=== PATIENT | male | born 1950 | race Caucasian/White ===

== ENCOUNTER → 2018-02-11 08:48 | Outpatient (CLI) | payer OTHER, SELFPAY ==
[2018-02-11 10:26] LABS: AST(SGOT) 24 U/L (15-37); Alanine Aminotransfer ALT/SGPT 60 U/L (16-61); Albumin, Serum 3.9 g/dL (3.2-5.0); Alkaline Phosphatase 40 U/L (45-117); Anion Gap 7 (5-15); BUN 17 mg/dL (7-18); BUN/Creat Ratio 15.9 RATIO (10-20); Bilirubin, Direct 0.15 mg/dL (0.00-0.30); Chloride 104 mmol/L (98-107); Cholesterol 152 mg/dL (200); Creatinine, Serum 1.07 mg/dL (0.70-1.30); EST Glomerular Filtration Rate 74 mL/min (>60); Est Glom Filt Rate - Afr Amer 89 mL/min (>60); Globulin 3.8 g/dL (2.2-4.2); Glucose 103 mg/dL (74-106); High Density Lipoprotein 32 mg/dL; Potassium 4.2 mmol/L (3.5-5.1); Protein, Total 7.7 g/dL (6.4-8.2); Sodium Level 139 mmol/L (136-145); Triglycerides 166 mg/dL; Very Low Density Lipoprotein 33 mg/dL (5-40)
== END ==
PROVIDERS: Family Provider Family Medicine; PCP Family Medicine; Visit Provider Family Medicine
DX: E11.9 Type 2 diabetes mellitus without complications (principal); Z79.4 Long term (current) use of insulin
CPT/HCPCS: 36415; 80048; 80061; 80076

== ENCOUNTER → 2018-11-16 08:46 | Outpatient (CLI) | payer OTHER, SELFPAY ==
[2018-11-16 10:38] LABS: Microalbumin:Creatinine Ratio 120.8 mg/g CRE (<30 mg/g CRE)
[2018-11-16 10:39] LABS: Anion Gap 8 (5-15); BUN 17 mg/dL (7-18); BUN/Creat Ratio 19.7 RATIO (10-20); Calcium,Total 8.7 mg/dL (8.5-10.1); Chloride 106 mmol/L (98-107); Cholesterol 151 mg/dL (200); Creatinine, Serum 0.86 mg/dL (0.70-1.30); EST Glomerular Filtration Rate 94 mL/min (>60); Est Glom Filt Rate - Afr Amer 114 mL/min (>60); Glucose 116 mg/dL (74-106); High Density Lipoprotein 40 mg/dL; Potassium 4.4 mmol/L (3.5-5.1); Sodium Level 141 mmol/L (136-145); Triglycerides 165 mg/dL; Very Low Density Lipoprotein 33 mg/dL (5-40)
--- OUTSIDE RECORDS SUMMARY | 2019-01-21 00:01 | XMS RPT_ITS ---
:1950 Author Organization [facility] Care Team Providers Name Role Phone JUDD TERRY Attending Unavailable Eduardo, Ari Attending Unavailable Ari Clark Primary Care Unavailable Ari Clark Attending Unavailable Eduardo, Ari Primary Care Unavailable Eduardo, Ari Attending Unavailable Eduardo, Ari Primary Care Unavailable PROBLEMS PROBLEMS DATE TYPE CONDITION / CODE ATTENDING STATUS SOURCE 11/16/2018 Unknown E11.9 - Type 2 Ari Clark Active [place] diabetes mellitus [facility] complications / Repository E11.9(ICD-10) 05/25/2018 Admitting Non-bullous HARRISON Active [facility] diagnosis impetigo / JUDD WHITNEY Repository L01.01(ICD-10) PROCEDURES PROCEDURES No Procedure Records FoundRESULTS RESULTS MICROALB:CREAT Collected: 11/16/2018 Status: F Source: [place] RATIO,RANDOM UR 8:48 AM [facility] HOSPITAL REPOSITORY TYPE CODE TESTS RESULT OUT OF RANGE REFERENCE UNITS LAB L501.1200 NO RANGE EST. mg/dL Normal UR CREAT 106.00 LAB L502.0500 NO RANGE EST. mg/L Normal 128.0 MICROALBUMIN ,UR LAB L502.0600 <30 mg/g CRE mg/g CRE High 120.8 MALB:CREAT Performed By: #### L502.0250 #### [facility] [address] [place], [place], [address] BASIC METABOLIC Collected: 11/16/2018 Status: F Source: [place] PROFILE (BMP) 8:48 AM [facility] [place] TYPE CODE TESTS RESULT OUT OF RANGE REFERENCE UNITS LAB L501.0100 74-106 mg/dL High GLU 116 Result Comment: Fasting Glucose result from 100 to 125 mg/dL suggests IMPAIRED HOMEOSTASIS per A.D.A. criteria. Please note revised GLUCOSE reference range effective 2017. LAB L501.1000 7-18 mg/dL Normal BUN 17 LAB L501.1100 0.70-1.30 mg/dL Normal CREAT,SERUM 0.86 Result Comment: The validity of the calculated GFR AND GFRAA in patients over 70 years has not been determined. Clinical correlation is essential. LAB L501.1110 >60 mL/min Normal EST GFR 94 Result Comment: Non- GFR Calc LAB L501.1115 >60 mL/min Normal EST GFR - AA 114 Result Comment: GFR Calc LAB L501.1300 10-20 RATIO Normal BUN/CRE 19.7 LAB L501.2200 8.5-10.1 mg/dL CA Normal 8.7 LAB L501.5300 136-145 mmol/L NA Normal 141 LAB L501.5600 3.5-5.1 mmol/L K Normal 4.4 LAB L501.5900 98-107 mmol/L CL Normal 106 LAB L501.6100 21.0-32.0 mmol/L Normal CO2 27.0 LAB L501.6200 5-15 Normal GAP 8 Performed By: #### L500.2500, L500.4100 #### [facility] [address] [place], [address] LIPID PROFILE Collected: 11/16/2018 Status: F Source: [place] 8:48 AM [facility] [place] TYPE CODE TESTS RESULT OUT OF RANGE REFERENCE UNITS LAB L501.4900 200 mg/dL Normal CHOL 151 Result Comment: <200 mg/dL Desirable 200-240 mg/dL Borderline >240 mg/dL High Risk LAB L501.5000 mg/dL Normal TRIG 165 Result Comment: The drugs N-Acetylcysteine and Metamizole may falsely depress this assay. Serum Triglycerides Reference Interval Normal <150 mg/dL Borderline high 150 - 199 mg/dL High 200 - 499 mg/dL Very High > or = 500 mg/dL LAB L501.6400 mg/dL Normal HDL 40 Result Comment: The drugs N-Acetylcysteine and Metamizole may falsely depress this assay. Reference Range HDL <40 mg/dL Low HDL Cholesterol HDL >or= 60 mg/dL High HDL Cholesterol LAB L501.6500 0-130 mg/dL Normal LDL 78 LAB L501.6600 5-40 mg/dL Normal VLDL 33 Performed By: #### L500.2500, L500.4100 #### [facility] [address] [place], [address] BASIC METABOLIC Collected: 02/11/2018 Status: F Source: [place] PROFILE (BMP) 8:50 AM [facility] [place] TYPE CODE TESTS RESULT OUT OF RANGE REFERENCE UNITS LAB L501.0100 74-106 mg/dL Normal GLU 103 Result Comment: Fasting Glucose result from 100 to 125 mg/dL suggests IMPAIRED HOMEOSTASIS per A.D.A. criteria. Please note revised GLUCOSE reference range effective 2017. LAB L501.1000 7-18 mg/dL Normal BUN 17 LAB L501.1100 0.70-1.30 mg/dL Normal CREAT,SERUM 1.07 Result Comment: The validity of the calculated GFR AND GFRAA in patients over 70 years has not been determined. Clinical correlation is essential. LAB L501.1110 >60 mL/min Normal EST GFR 74 Result Comment: Non- GFR Calc LAB L501.1115 >60 mL/min Normal EST GFR - AA 89 Result Comment: GFR Calc LAB L501.1300 10-20 RATIO Normal BUN/CRE 15.9 LAB L501.2200 8.5-10.1 mg/dL CA Normal 9.0 LAB L501.5300 136-145 mmol/L NA Normal 139 LAB L501.5600 3.5-5.1 mmol/L K Normal 4.2 LAB L501.5900 98-107 mmol/L CL Normal 104 LAB L501.6100 21.0-32.0 mmol/L Normal CO2 28.0 LAB L501.6200 5-15 Normal GAP 7 Performed By: #### L500.2500, L500.3400, L500.4100 #### [facility] [address] [place], [place], [address] LIVER PROFILE Collected: 02/11/2018 Status: F Source: [place] 8:50 AM [facility] [place] TYPE CODE TESTS RESULT OUT OF RANGE REFERENCE UNITS LAB L501.1500 6.4-8.2 g/dL Normal T PROT 7.7 LAB L501.1800 3.2-5.0 g/dL Normal ALB 3.9 LAB L501.1950 2.2-4.2 g/dL Normal GLOB 3.8 LAB L501.4100 15-37 U/L Normal AST 24 LAB L501.4305 45-117 U/L Low ALK P 40 LAB L501.4405 16-61 U/L Normal ALT 60 Result Comment: Please note revised ALT reference range effective 2017. LAB L501.4600 0.20-1.00 mg/dL Normal T BILI 0.60 LAB L501.4700 0.00-0.30 mg/dL Normal D BILI 0.15 Performed By: #### L500.2500, L500.3400, L500.4100 #### [facility] [address] [place], [place], [id number] LIPID PROFILE Collected: 02/11/2018 Status: F Source: [place] 8:50 AM [facility] [place] TYPE CODE TESTS RESULT OUT OF RANGE REFERENCE UNITS LAB L501.4900 200 mg/dL Normal CHOL 152 Result Comment: <200 mg/dL Desirable 200-240 mg/dL Borderline >240 mg/dL High Risk LAB L501.5000 mg/dL Normal TRIG 166 Result Comment: The drugs N-Acetylcysteine and Metamizole may falsely depress this assay. Serum Triglycerides Reference Interval Normal <150 mg/dL Borderline high 150 - 199 mg/dL High 200 - 499 mg/dL Very High > or = 500 mg/dL LAB L501.6400 mg/dL Low HDL 32 Result Comment: The drugs N-Acetylcysteine and Metamizole may falsely depress this assay. Reference Range HDL <40 mg/dL Low HDL Cholesterol HDL >or= 60 mg/dL High HDL Cholesterol LAB L501.6500 0-130 mg/dL Normal LDL 87 LAB L501.6600 5-40 mg/dL Normal VLDL 33 Performed By: #### L500.2500, L500.3400, L500.4100 #### [facility] [address] [place], [address] ALLERGIES ALLERGIES DATE TYPE / CODE NAME / CODE REACTION SEVERITY SOURCE 10/30/2013 Drug latex/C11231 Rash MT [facility] Allergy/4160 8921(RXNORM) [place] 2800202(SNOMED Repository CT) 10/17/2013 Drug iodine/F0060 Other Unknown [facility] Allergy/4160 17851([place] [address](SNOMED ) Repository CT) ENCOUNTERS ENCOUNTERS ADMIT/DISCHARGE ACCOUNT NUMBER ADMITTING ENCOUNTER LOCATION SOURCE CLASS 11/16/2018 [id number] [facility] ding:MFPLAB Repository 08/02/2018 [id number] [facility] ding:LAB.FUT Repository URE 05/25/2018/05/25/20 [id number] Ambulatory Building:LAB [address] One Repository 02/11/2018 [id number] [facility] ding:MFPLAB Repository PAYERS PAYERS ENCOUNTER GUARANTOR PAYER SUBSCRIBER SOURCE 11/16/2018 Dimitri Gomes1670 Primary Dimitri MontañoB: [facility] Insurance:Nail Your Mortgage [id number] [facility] [address]Yrp: (567) Number: Repository [phone] () [id number] Date:[id number] [address], [place] [address]SC: 11/16/2018 Secondary NOT GIVENUNK [place] Insurance:SELF PAY [facility] Number: Effective Repository Date:2018-11-16 08/02/2018 Dimitri Gomes1670 Primary Dimitri MontañoB: [facility]Nail Your Mortgage [id number] [address]Nqo: (567) Number: Repository [phone] () [id number] Date:[id number] [address] [address], [place] [address]RN: 08/02/2018 Secondary NOT GIVENUNK [place] Insurance:SELF PAY [facility] Number: Effective Repository Date:2018-08-02 05/25/2018 DIMITRI Zapata Primary DIMITRI Zapata [facility] ELISEODOB: Insurance:AETNAPolamber MONTAÑOB: Repository Number: [id number] [place] [address] [place], [id number] [place] [address]Twj: Date:2018-03-01 [place] [address] () 02/11/2018 Dimitri Gomes1670 Primary Dimitri MontañoB: [place] Insurance:NIPP[employer] LIFE [id number] [facility] [address]Kve: (018) Number: Repository [phone] () [id number] Date:[id number] [address] [address], [place] [address]JE: 02/11/2018 Secondary NOT GIVENUNK [place] Insurance:SELF PAY [facility] Number: Effective Repository Date:2018-02-11
== END ==
PROVIDERS: Family Provider Family Medicine; PCP Family Medicine; Visit Provider Family Medicine
DX: E11.9 Type 2 diabetes mellitus without complications (principal)
CPT/HCPCS: 36415; 80048; 80061; 82043; 82570

== ENCOUNTER → 2019-01-12 10:32 | Outpatient (CLI) | payer OTHER, SELFPAY ==
--- NOTE | 2019-01-12 10:43 | RAD_ITS ---
STUDY: X-RAY - LUMBAR SPINE REASON FOR EXAM: Male, 68 years old. Lower back pain. TECHNIQUE: 5 view(s) of the lumbar spine were obtained. COMPARISON: None FINDINGS: There is straightening of the normal lumbar lordosis. There is no substantial scoliosis. There is a normal alignment of the vertebrae. There is multilevel endplate spondylosis of the lumbar vertebrae. There is multi-level degenerative disc disease with multi-level disc space narrowing. There is no evidence of acute fracture or loss of vertebral axial height. There is no demonstrated spondylolysis of the pars interarticulares. The soft tissue structures are unremarkable. RAD/L/S Spine Min 4 Views IMPRESSION: Degenerative changes of the spine, as detailed above. Electronically Signed: Rg Marx DO at 17:50 EDT Tel [phone], Service support ,
== END ==
PROVIDERS: Family Provider Family Medicine; PCP Family Medicine; Referring Provider Family Medicine; Visit Provider Family Medicine
DX: M54.5 Low back pain (principal)
CPT/HCPCS: 72110

== ENCOUNTER 2019-03-10 07:00 | Outpatient (RCR) | payer OTHER, SELFPAY ==
--- NOTE | 2019-01-23 07:49 | HP.PTEVAL ---
Patient's Visit Information DIMITRI GOMES is a 68 year old M referred to Physical Therapy by Ari Clark MD with a diagnosis of DDD. Date of Evaluation: 01/23/19 Physical Therapist: Ken Casarez DPT, OCS, CSCS - Visit Plan Frequency: 2-3x /Week Duration: 4-6 Weeks Plan: 2-3x/week for 3-6 for. 1. Celia ext bias HEP(may need to change if not progressing to NS). 2. quad and HS stretches to HEP. 3. LB ROM ext bias to start and progression of forces. 4. Core DLS and progress to HEP. 5. ES and MH if needed for pain. - Subjective Findings: X rays of LB shows DDD. Has had chronic back pain for a year but got bad where he could hardly get out of bed. This was after carrying a bunch of bottles of water from [employer] 40# at a time and uit hurt the next day...that was 3 weeks ago. 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 Worse as day goes on. Better in am. 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 Missed a week after moving water. Sleep is interrupted bought a new firmer mattress which helps. Not dancing and would be otherwise. Currently back is stillt araseli , trouble getting off toilet adn up out of chair. Takes a while to bend and put shoes on. Better than it was 3 weeks ago. Ex: has rowing machine which sometimes helps. - Pain LBP R sided Pain Intensity (Out of 10): 4 Pain Intensity Range: 2, 5, 10 - Objective LOw back has flat lordosis and kyphotic T/S. Moves slow and painful to get out of chair, slightly SB R. reflexes 0/3 patella and achilles. HS and quads max tight. sensation LE diminished to gross light touch in B feet.]. superman not painful today. Strength LE 4+/5 without myotomal abnormalities. + L/S compression, more pain with R SB. LS aROM ext max limtied and painful R, flexion mod painful and slow, SB R>L {ainful. repeated ext seems to diminish pain and repeated flexion worsens symptoms. Increases ext ROM. Functionally can transition and walk and climb steps I but slow and very little back movement in spine. - Goals Goal 1:: Patient with good LB AROM without pain Goal Time Frame: 4-6 Weeks Goal 2:: Go to bathroom and get out of chair without slowlness or pain Goal Time Frame: 4-6 Weeks Goal 3:: Sleep without interruption due to pain Goal Time Frame: 4-6 Weeks Goal 4:: I approp HEP to minimize future problems. Goal Time Frame: 4-6 Weeks Goal 6:: Patient feel 75% improved in condition Goal Time Frame: 4-6 Weeks - Rehabilitation Potential Physical Therapy Diagnosis: LBP DDD vs disc bulge. Rehabilitation Potential: Fair - Anticipated Interventions Patient/Client Instruction: Educate patient on: Condition, Plan of Care For the Purpose of:: To decrease pain, To increase ROM, To improve ability of physical actions for home/community/work/leisure Therapeutic Exercise to Include: Strength training, Flexibilty training, Passive ROM, Active ROM, Dynamic Lumbar Stabilization, Celia Exercises For the Purpose of:: To decrease pain, To increase ROM, To improve nutrient delivery to tissue, To increase tolerance to activity/condition/position, To improve ability of physical actions for home/community/work/leisure Manual Therapy Techniques to Include: Mobilization For the Purpose of:: To decrease pain IF ES: Yes Thermo therapy (hot pack): Yes For the Purpose of:: To decrease pain Thank you for the opportunity to evaluate your patient. For Medicare and Medicare HMO plans, please review the plan of care and approve it. It will need to be FAXED BACK to us at [phone] for Medicare purposes. For Medicare only, by signing this I certify the plan of care. Please let me know if there are questions or concerns regarding this plan of care. Physician Signature: Date:
--- NOTE | 2019-02-10 07:51 | HP.PTREVAL_ITS ---
Ari Clark MD, It has been my pleasure to treat DIMITRI GOMES over the last 9 visits for DDD. Please see the progress note below for an update on the physical therapy plan of care! Subjective: Getting better, pain is not every day. Day after therapy feels better for the whole day. Pain this week has been to 7/10. 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 This is now done until March. Driving makes stiff getting out of car. 1 HR 40 minutes. Woud like to continue HEP to make progress vs in clinic. HEP includes PPU. To doctor in a couple months. Objective/Function: Transfers easier but still slightly painful up from supine and sit. ROM in extension is mod limtied adn slightly painful, R SB slight painful, L SB is good, flexion is slow. All are mildly improved from day one. OVERALL SLOW IMPROVEMENTS. 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 Plan Plan: PT TO CONTINUE WITH HEP AND F/U IN ONE MONTHS TO ENSURE CONTINUED PROGRESS, CALL PRIOR IF WORSENS. Goals Goal 1:: Patient with good LB AROM without pain Goal Time Frame: 4-6 Weeks Goal Progress: imroving Goal 2:: Go to bathroom and get out of chair without slowlness or pain Goal Time Frame: 4-6 Weeks Goal Progress: Progressing Goal 3:: Sleep without interruption due to pain Goal Time Frame: 4-6 Weeks Goal 4:: I approp HEP to minimize future problems. Goal Progress: rom and posture! Goal Time Frame: 4-6 Weeks Goal 6:: Patient feel 75% improved in condition Goal Time Frame: 4-6 Weeks Anticipated Interventions Patient/Client Instruction: Educate patient on: Condition, Plan of Care For the Purpose of:: To decrease pain, To increase ROM, To improve ability of physical actions for home/community/work/leisure Therapeutic Exercise to Include: Strength training, Flexibilty training, Passive ROM, Active ROM, Dynamic Lumbar Stabilization, Aston Exercises For the Purpose of:: To decrease pain, To increase ROM, To improve nutrient delivery to tissue, To increase tolerance to activity/condition/position, To improve ability of physical actions for home/community/work/leisure Manual Therapy Techniques to Include: Mobilization For the Purpose of:: To decrease pain IF ES: Yes Thermo therapy (hot pack): Yes For the Purpose of:: To decrease pain Please do not hesitate to contact me at [phone] by phone or if you have questions or concerns regarding this new plan of care! Sincerely, Ken Casarez, DPT, OCS, CSCS
--- NOTE | 2019-03-10 07:13 | HP.PTDCSUM_ITS ---
HP - PT D/C Summary It has been my pleasure to treat DIMITRI GOMES under orders from Ari Clark MD, for the diagnosis of DDD for a total of 10 visit(s). Discharge Date: 03/10/19 Please see the following information for a summary of their discharge status. - Subjective Subjective: Slowly getting better, less frequent pain. Will go mattress shopping as this may be part of the problem. To doctor in April. Pain this week 1/10 intermittently in am and stiff after 1:[address] work. Hard to get exe rcises in but they help when he does them. - Pain LBP R sided Pain Intensity (Out of 10): 1 - Overall Improvement % Improvement: 95 - Objective Objective/Function: ROM ext and flexion improved but still min limited, no increased pain, SB B both very stiff. Shows stiffness transferring out of chair but walks well. OVERALL VERY GOOD, STILL STIFF. - Goals Goal 1:: Patient with good LB AROM without pain Goal Progress: Goal Met Goal 2:: Go to bathroom and get out of chair without slowlness or pain Goal Progress: Progressing Goal 3:: Sleep without interruption due to pain Goal Progress: Goal Met Goal 4:: I approp HEP to minimize future problems. Goal Progress: compliance? Goal 6:: Patient feel 75% improved in condition Goal Progress: Goal Met - Plan Plan: D/C - D/C Information Discharge Comments: dOING WELL, COMPLIANCE WITH EX ADN POSTURE IS A PROBLEM DUE TO BUSY SCHEDULE BTU WILL CONTINUE AND LET DOCTOR KNOW IF PROBLEMS RECURR. If there are questions or concerns regarding this patient's physical therapy, please feel free to call me at [phone]. Thank you for the referral of this patient. Sincerely, Ken Casarez, DPT, OCS, CSCS
== END 2019-03-10 19:00 | disposition home or self-care (01) ==
LOC: PT 07:00
PROVIDERS: Family Provider Family Medicine; PCP Family Medicine; Referring Provider Family Medicine; Visit Provider Family Medicine
DX: M53.9 Dorsopathy, unspecified (principal)
CPT/HCPCS: 97110; 97162; 97530

== ENCOUNTER → 2019-06-30 09:08 | Outpatient (CLI) | payer OTHER, SELFPAY ==
[2019-06-30 10:21] LABS: Anion Gap 5 (5-15); BUN 19 mg/dL (7-18); BUN/Creat Ratio 20.5 RATIO (10-20); Calcium,Total 9.1 mg/dL (8.5-10.1); Chloride 108 mmol/L (98-107); Cholesterol 172 mg/dL (200); Creatinine, Serum 0.93 mg/dL (0.70-1.30); EST Glomerular Filtration Rate 86 mL/min (>60); Est Glom Filt Rate - Afr Amer 105 mL/min (>60); Glucose 123 mg/dL (74-106); High Density Lipoprotein 40 mg/dL; Sodium Level 141 mmol/L (136-145); Triglycerides 124 mg/dL; Very Low Density Lipoprotein 25 mg/dL (5-40)
== END ==
PROVIDERS: Family Provider Family Medicine; PCP Family Medicine; Referring Provider Family Medicine; Visit Provider Family Medicine
DX: E29.1 Testicular hypofunction (principal); E11.9 Type 2 diabetes mellitus without complications
CPT/HCPCS: 36415; 80048; 80061; 84403

== ENCOUNTER → 2019-12-04 16:48 | Outpatient (CLI) | payer OTHER, SELFPAY ==
[2019-12-04 18:20] LABS: Uric Acid 5.1 mg/dL (3.5-7.2)
== END ==
PROVIDERS: PCP Family Medicine; Referring Provider Family Medicine; Visit Provider Family Medicine
DX: M10.9 Gout, unspecified (principal)
CPT/HCPCS: 36415; 84550

== ENCOUNTER → 2020-03-01 09:13 | Outpatient (CLI) | payer OTHER, SELFPAY ==
--- NOTE | 2020-03-01 09:17 | RAD_ITS ---
STUDY: X-RAY - LEFT FOOT CLINICAL: Male, 69 years old. Left foot pain x 3 weeks TECHNIQUE: 3 view(s) of the foot. COMPARISON: None. FINDINGS: Normal talus, calcaneus, and tarsal bones. Normal visualized subtalar, talonavicular, calcaneocuboid, tarsal and tarsometatarsal articulations. Normal metatarsi. Normal metatarsophalangeal joint of the great toe. Normal tibial and fibular sesamoid bones. Normal interphalangeal joint of the great toe. Normal phalanges of the great toe. Normal second through fifth metatarsophalangeal joints. Normal interphalangeal joints and phalanges of the lesser toes. The soft tissue structures are unremarkable. RAD/Foot min 3 Views IMPRESSION: Normal x-ray examination of the foot. Electronically Signed: Yoni Cordova, at 10:38 EDT , Service support ,
== END ==
PROVIDERS: PCP Family Medicine; Referring Provider Family Medicine; Visit Provider Family Medicine
DX: M79.673 Pain in unspecified foot (principal)
CPT/HCPCS: 73630

== ENCOUNTER → 2020-06-03 09:35 | Outpatient (CLI) | payer OTHER, SELFPAY ==
[2020-06-03 12:36] LABS: Anion Gap 7 (5-15); BUN 21 mg/dL (7-18); BUN/Creat Ratio 21.8 RATIO (10-20); Chloride 106 mmol/L (98-107); Cholesterol 174 mg/dL (200); Creatinine, Serum 0.96 mg/dL (0.70-1.30); EST Glomerular Filtration Rate 83 mL/min (>60); Est Glom Filt Rate - Afr Amer 100 mL/min (>60); Glucose 107 mg/dL (74-106); High Density Lipoprotein 36 mg/dL; Potassium 4.5 mmol/L (3.5-5.1); Sodium Level 138 mmol/L (136-145); Triglycerides 164 mg/dL; Very Low Density Lipoprotein 33 mg/dL (5-40)
== END ==
PROVIDERS: PCP Family Medicine; Referring Provider Family Medicine; Visit Provider Family Medicine
DX: I10 Essential (primary) hypertension (principal)
CPT/HCPCS: 36415; 80048; 80061

== ENCOUNTER → 2020-11-20 15:28 | Outpatient (CLI) | payer OTHER, SELFPAY ==
[2020-11-20 15:31] LABS: Lyme Ab Screen Interpretation REF LAB
[2020-11-20 18:05] LABS: Absolute Lymphocyte Count 1.59 X10^3/uL (0.83-4.51); Absolute Neutrophil Count 4.8 X10^3/uL (2.0-7.7); Basophil# 0.02 X10^3/uL; Basophil% 0.3 % (0-1); Eosinophil# 0.51 X10^3/uL; Eosinophils% 6.8 % (0-5); Hematocrit 44.7 % (40-54); Lymphocyte # 1.59 X10^3/ul (4.0); Lymphocyte % 21.3 % (19-41); Mean Corp Hgb Conc 33.6 g/dL (32-36); Mean Corpuscular Hgb 30.9 pg (27.0-32.0); Mean Corpuscular Volume 92.2 fL (80-94); Mean Platelet Vol. 11.3 fl (6.2-12.0); Monocyte# 0.54 X10^3/uL; Monocyte% 7.2 % (0-10); NRBC Flagged by Analyzer 0 % (0-5); Neutrophil % 64.1 % (47-70); Platelet Count 228 K/mm3 (150-450); RBC Distribution Width CV 12.2 % (11.6-14.6); RBC Distribution Width SD 41.4 fl (35.1-43.9); Red Blood Count 4.85 M/mm3 (4.6-6.2); White Blood Count 7.5 K/mm3 (4.4-11.0)
[2020-11-20 18:35] LABS: Erythrocyte Sedimentation Rate 24 mm/hr (0-20)
[2020-11-20 18:44] LABS: Anion Gap 7 (5-15); BUN 18 mg/dL (7-18); BUN/Creat Ratio 18.1 RATIO (10-20); Chloride 105 mmol/L (98-107); EST Glomerular Filtration Rate 79 mL/min (>60); Est Glom Filt Rate - Afr Amer 96 mL/min (>60); Glucose 212 mg/dL (74-106); Potassium 4.4 mmol/L (3.5-5.1); Sodium Level 137 mmol/L (136-145)
[2020-11-22 20:38] LABS: ANTINUCLEAR ANTIBODIES DIRECT Positive (Negative); Lyme Scn Total Ab w/Rflx <0.91 ISR (0.00-0.90)
== END ==
PROVIDERS: PCP Family Medicine; Referring Provider Family Medicine; Visit Provider Family Medicine
DX: M25.50 Pain in unspecified joint (principal); R53.83 Other fatigue; W57.XXXA Bitten or stung by nonvenomous insect and other nonvenomous arthropods, initial encounter
CPT/HCPCS: 36415; 80048; 85025; 85652; 86038; 86141; 86618

== ENCOUNTER → 2020-12-30 15:08 | Outpatient (CLI) | payer OTHER, SELFPAY ==
[2020-12-30 17:52] LABS: Absolute Lymphocyte Count 1.56 X10^3/uL (0.83-4.51); Absolute Neutrophil Count 4.9 X10^3/uL (2.0-7.7); Basophil# 0.03 X10^3/uL; Basophil% 0.4 % (0-1); Eosinophil# 0.47 X10^3/uL; Eosinophils% 6.2 % (0-5); Hematocrit 40.8 % (40-54); Hemoglobin 14.6 g/dL (13.0-16.5); Lymphocyte # 1.56 X10^3/ul (4.0); Lymphocyte % 20.7 % (19-41); Mean Corp Hgb Conc 35.8 g/dL (32-36); Mean Corpuscular Hgb 34.2 pg (27.0-32.0); Mean Corpuscular Volume 95.6 fL (80-94); Mean Platelet Vol. 10.8 fl (6.2-12.0); Monocyte# 0.59 X10^3/uL; Monocyte% 7.8 % (0-10); NRBC Flagged by Analyzer 0 % (0-5); Neutrophil # 4.86 X10^3/uL (2.7-7.7); Neutrophil % 64.6 % (47-70); Platelet Count 210 K/mm3 (150-450); RBC Distribution Width CV 13.7 % (11.6-14.6); RBC Distribution Width SD 44.9 fl (35.1-43.9); Red Blood Count 4.27 M/mm3 (4.6-6.2); White Blood Count 7.5 K/mm3 (4.4-11.0)
[2020-12-30 18:22] LABS: Anion Gap 10 (5-15); BUN 18 mg/dL (7-18); Calcium,Total 9.4 mg/dL (8.5-10.1); Chloride 107 mmol/L (98-107); EST Glomerular Filtration Rate 79 mL/min (>60); Est Glom Filt Rate - Afr Amer 96 mL/min (>60); Glucose 194 mg/dL (74-106); Potassium 4.5 mmol/L (3.5-5.1); Sodium Level 140 mmol/L (136-145)
== END ==
PROVIDERS: PCP Family Medicine; Referring Provider Family Medicine; Visit Provider Family Medicine
DX: R20.2 Paresthesia of skin (principal)
CPT/HCPCS: 36415; 80048; 85025

== ENCOUNTER → 2021-01-08 07:48 | Outpatient (CLI) | payer OTHER, SELFPAY ==
--- NOTE | 2021-01-08 07:53 | CT_ITS ---
STUDY: CT BRAIN WITHOUT CONTRAST REASON FOR EXAM: Male, 70 years old. HEADACHE RADIATION DOSAGE (If Supplied By Facility): CTDIvol = ( 44.99 ) mGy, DLP = ( 812.98 ) mGycm TECHNIQUE: Transaxial CT imaging of the brain was performed without administration of intravenous contrast material. Individualized dose optimization techniques were used for this CT. COMPARISON: No relevant priors. FINDINGS: Normal soft tissue structures. Normal calvarium. Normal size ventricles and extra-axial spaces for the patient''s age. There are areas of decreased attenuation within the white matter tracts of the supratentorial brain, consistent with microvascular disease changes. Normal basal ganglia and thalami. Normal brainstem. Normal cerebellum. There is no intracranial hemorrhage. There are no findings of an acute ischemic infarction. Normal visualized paranasal sinuses. CT/Brain/Head without Contrast IMPRESSION: Chronic involutional changes of the brain. Electronically Signed: Lisa Hahn MD at 16:45 EST Tel , Service support ,
== END ==
PROVIDERS: PCP Family Medicine; Referring Provider Family Medicine; Visit Provider Family Medicine
DX: R51.9 Headache, unspecified (principal)
CPT/HCPCS: 70450

== ENCOUNTER → 2021-06-13 08:48 | Outpatient (CLI) | payer OTHER, SELFPAY ==
[2021-06-13 10:08] LABS: Absolute Lymphocyte Count 1.05 X10^3/uL (0.83-4.51); Absolute Neutrophil Count 4.1 X10^3/uL (2.0-7.7); Basophil# 0.03 X10^3/uL; Basophil% 0.5 % (0-1); Eosinophil# 0.41 X10^3/uL; Eosinophils% 6.7 % (0-5); Lymphocyte # 1.05 X10^3/ul (0.83-4.51); Lymphocyte % 17.1 % (19-41); Mean Corp Hgb Conc 33.3 g/dL (32-36); Mean Corpuscular Hgb 32.1 pg (27.0-32.0); Mean Corpuscular Volume 96.2 fL (80-94); Mean Platelet Vol. 10.9 fl (6.2-12.0); Monocyte% 8.1 % (0-10); NRBC Flagged by Analyzer 0 % (0-5); Neutrophil # 4.14 X10^3/uL (2.7-7.7); Neutrophil % 67.4 % (47-70); Platelet Count 205 K/mm3 (150-450); RBC Distribution Width CV 12.4 % (11.6-14.6); RBC Distribution Width SD 43.7 fl (35.1-43.9); Red Blood Count 4.68 M/mm3 (4.6-6.2); White Blood Count 6.1 K/mm3 (4.4-11.0)
[2021-06-13 10:31] LABS: Anion Gap 6 (5-15); BUN 20 mg/dL (7-18); BUN/Creat Ratio 20.5 RATIO (10-20); Calcium,Total 9.7 mg/dL (8.5-10.1); Chloride 108 mmol/L (98-107); Cholesterol 165 mg/dL (200); Creatinine, Serum 0.98 mg/dL (0.70-1.30); EST Glomerular Filtration Rate 81 mL/min (>60); Est Glom Filt Rate - Afr Amer 98 mL/min (>60); Glucose 246 mg/dL (74-106); High Density Lipoprotein 34 mg/dL; Potassium 4.6 mmol/L (3.5-5.1); Sodium Level 139 mmol/L (136-145); Triglycerides 227 mg/dL; Very Low Density Lipoprotein 45 mg/dL (5-40)
[2021-06-13 12:59] LABS: Microalbumin,Random Urine 47.4 mg/L (NO RANGE EST.); Microalbumin:Creatinine Ratio 114.2 mg/g CRE (<30 mg/g CRE)
== END ==
PROVIDERS: PCP Family Medicine; Referring Provider Family Medicine; Visit Provider Family Medicine
DX: E11.9 Type 2 diabetes mellitus without complications (principal); M25.50 Pain in unspecified joint
CPT/HCPCS: 36415; 80048; 80061; 82043; 82570; 85025

== ENCOUNTER 2021-07-24 07:30 | Outpatient (RCR) | payer OTHER, SELFPAY ==
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
--- NOTE | 2022-01-14 10:06 | HP.PT.NRP ---
DIMITRI GOMES was seen in my office for initial evaluation on 07/17/21. The following Plan of Care was established for this patient: Initial Frequency: 2x /Week Initial Duration: 6 Weeks Patient/Client Instruction: Educate patient on: Condition, Plan of Care, Benefits of Fitness Program For the Purpose of:: To decrease pain, To decrease swelling/inflammation, To increase ROM, To improve ability to perform ADL's, To decrease soft tissue restriction, To increase flexibility/ROM, To assume or resume ADL's, To improve tolerance to ADL's Therapeutic Exercise to Include: Strength training, Endurance training, Body mechanics, Flexibilty training, Active ROM, Dynamic Lumbar Stabilization For the Purpose of:: To decrease pain, To decrease swelling/inflammation, To increase ROM, To improve ability to perform ADL's, To improve performance and independence with ADL's, To decrease soft tissue restriction, To increase flexibility/ROM, To improve endurance, To improve tolerance to ADL's Functional Training to Include: ADL Training, Functional home training For the Purpose of:: To decrease pain, To decrease swelling/inflammation, To increase ROM, To improve performance and independence with ADL's, To increase flexibility/ROM, To assume or resume ADL's, To improve tolerance to ADL's Manual Therapy Techniques to Include: Massage, Mobilization, Manipulation, Functional dry needling, Soft tissue mobilization For the Purpose of:: To decrease pain, To decrease swelling/inflammation, To increase ROM, To improve ability to perform ADL's, To improve performance and independence with ADL's, To increase flexibility/ROM, To assume or resume ADL's, To improve tolerance to ADL's TENS: Yes IF ES: Yes Cryotherapy (ice pack, ice massage): Yes Thermo therapy (hot pack): Yes Pelvic traction supine: Yes - If radicular symptoms begin For the Purpose of:: To decrease pain, To decrease swelling/inflammation, To increase ROM, To improve ability to perform ADL's, To improve performance and independence with ADL's, To increase flexibility/ROM, To assume or resume ADL's, To improve tolerance to ADL's This patient was last seen in our office 07/24/22. Pertinent comments regarding their Physical therapy will appear below: Pt seen 3 visits and seemed to be improving but did not schedule or attend the rest of their visits. at this point, it has been over 5 months and I will discontinue due to nonattendance. At this point I will be discontinuing this patient from physical therapy. I would be happy to see this patient again in the future if found appropriate by the physician. Thank you! Ken Casarez, DPT, OCS, CSCS Balance/Gait/Functional tests - Balance/Special Test Scores Oswestry Low Back Score: 29
== END 2021-07-24 19:00 | disposition home or self-care (01) ==
LOC: PT 07:30
PROVIDERS: PCP Family Medicine; Referring Provider Family Medicine; Visit Provider Family Medicine
DX: M62.830 Muscle spasm of back (principal)
CPT/HCPCS: 97110; 97140; 97162

== ENCOUNTER 2021-12-23 07:18 | Outpatient (CLI) | payer OTHER, SELFPAY ==
[2021-12-23 07:47] LABS: Absolute Lymphocyte Count 1.36 X10^3/uL (0.83-4.51); Absolute Neutrophil Count 5.4 X10^3/uL (2.0-7.7); Basophil# 0.03 X10^3/uL; Basophil% 0.4 % (0-1); Eosinophil# 0.48 X10^3/uL; Eosinophils% 6.2 % (0-5); Hematocrit 44.5 % (40-54); Hemoglobin 15.5 g/dL (13.0-16.5); Lymphocyte # 1.36 X10^3/ul (0.83-4.51); Lymphocyte % 17.4 % (19-41); Mean Corp Hgb Conc 34.8 g/dL (32-36); Mean Corpuscular Hgb 31.9 pg (27.0-32.0); Mean Corpuscular Volume 91.6 fL (80-94); Mean Platelet Vol. 11.5 fl (6.2-12.0); Monocyte# 0.52 X10^3/uL; Monocyte% 6.7 % (0-10); NRBC Flagged by Analyzer 0 % (0-5); Neutrophil % 69.2 % (47-70); Platelet Count 230 K/mm3 (150-450); RBC Distribution Width CV 12.6 % (11.6-14.6); RBC Distribution Width SD 42.8 fl (35.1-43.9); Red Blood Count 4.86 M/mm3 (4.6-6.2); White Blood Count 7.8 K/mm3 (4.4-11.0)
[2021-12-23 08:38] LABS: Anion Gap 6 (5-15); BUN 17 mg/dL (7-18); BUN/Creat Ratio 16.7 RATIO (10-20); Calcium,Total 9.1 mg/dL (8.5-10.1); Chloride 105 mmol/L (98-107); Cholesterol 141 mg/dL (200); Creatinine, Serum 1.02 mg/dL (0.70-1.30); EST Glomerular Filtration Rate 77 mL/min (>60); Est Glom Filt Rate - Afr Amer 93 mL/min (>60); Glucose 193 mg/dL (74-106); High Density Lipoprotein 41 mg/dL; Potassium 4.3 mmol/L (3.5-5.1); Sodium Level 140 mmol/L (136-145); Triglycerides 116 mg/dL; Very Low Density Lipoprotein 23 mg/dL (5-40)
[2021-12-23 08:44] LABS: Vitamin B12 571 pg/mL (211-911)
[2021-12-23 09:04] LABS: Microalbumin:Creatinine Ratio 201.7 mg/g CRE (<30 mg/g CRE)
== END 2021-12-23 23:59 | disposition home or self-care (01) ==
LOC: LAB 07:21
PROVIDERS: PCP Family Medicine; Referring Provider Family Medicine; Visit Provider Family Medicine
DX: M19.90 Unspecified osteoarthritis, unspecified site (principal); E11.9 Type 2 diabetes mellitus without complications
CPT/HCPCS: 36415; 80048; 80061; 82043; 82570; 82607; 85025

== ENCOUNTER → 2023-10-07 | Outpatient (CLI) | payer OTHER, SELFPAY ==
[2023-10-07 10:33] LABS: Microalbumin,Random Urine 85.5 mg/L (NO RANGE EST.); Microalbumin:Creatinine Ratio 232.3 mg/g CRE (<30 mg/g CRE)
[2023-10-07 10:51] LABS: Anion Gap 5 (5-15); BUN 18 mg/dL (7-18); BUN/Creat Ratio 19.4 RATIO (10-20); Calcium,Total 9.1 mg/dL (8.5-10.1); Chloride 110 mmol/L (98-107); Cholesterol 169 mg/dL (200); Creatinine, Serum 0.93 mg/dL (0.70-1.30); EST Glomerular Filtration Rate 85 mL/min (>60); Est Glom Filt Rate - Afr Amer 103 mL/min (>60); Glucose 157 mg/dL (74-106); High Density Lipoprotein 49 mg/dL; Potassium 4.2 mmol/L (3.5-5.1); Sodium Level 139 mmol/L (136-145); Triglycerides 76 mg/dL; Very Low Density Lipoprotein 15 mg/dL (5-40)
== END | disposition home or self-care (01) ==
LOC: MFPLAB 08:18
PROVIDERS: PCP Family Medicine; Visit Provider Family Medicine
DX: E11.9 Type 2 diabetes mellitus without complications (principal)
CPT/HCPCS: 36415; 80048; 80061; 82043; 82570

== ENCOUNTER → 2024-04-06 | Outpatient (CLI) | payer OTHER, SELFPAY ==
[2024-04-06 11:00] LABS: ALB/GLOB Ratio 1.1 RATIO (0.9-2.4); AST(SGOT) 14 U/L (15-37); Alanine Aminotransfer ALT/SGPT 27 U/L (16-61); Albumin, Serum 3.9 g/dL (3.2-5.0); Alkaline Phosphatase 37 U/L (45-117); Anion Gap 5 (5-15); BUN 19 mg/dL (7-18); BUN/Creat Ratio 21.2 RATIO (10-20); Calcium,Total 9.1 mg/dL (8.5-10.1); Chloride 108 mmol/L (98-107); Cholesterol 140 mg/dL (200); EST Glomerular Filtration Rate 89 mL/min (>60); Est Glom Filt Rate - Afr Amer 107 mL/min (>60); Globulin 3.4 g/dL (2.2-4.2); Glucose 165 mg/dL (74-106); High Density Lipoprotein 45 mg/dL; Potassium 4.3 mmol/L (3.5-5.1); Protein, Total 7.3 g/dL (6.4-8.2); Sodium Level 137 mmol/L (136-145); Triglycerides 106 mg/dL; Very Low Density Lipoprotein 21 mg/dL (5-40)
[2024-04-07 19:39] LABS: Microalbumin:Creatinine Ratio 306.9 mg/g CRE (<30 mg/g CRE)
== END | disposition home or self-care (01) ==
LOC: MFPLAB 08:24
PROVIDERS: PCP Family Medicine; Visit Provider Family Medicine
DX: E11.9 Type 2 diabetes mellitus without complications (principal)
CPT/HCPCS: 36415; 80053; 80061; 82043; 82570

== ENCOUNTER → 2024-09-15 | Outpatient (CLI) | payer OTHER, SELFPAY ==
[2024-09-15 10:45] LABS: ALB/GLOB Ratio 1.2 RATIO (0.9-2.4); AST(SGOT) 15 U/L (15-37); Alanine Aminotransfer ALT/SGPT 34 U/L (16-61); Albumin, Serum 4.1 g/dL (3.2-5.0); Alkaline Phosphatase 28 U/L (45-117); Anion Gap 7 (5-15); BUN 13 mg/dL (7-18); BUN/Creat Ratio 14.9 RATIO (10-20); Calcium,Total 9.2 mg/dL (8.5-10.1); Chloride 106 mmol/L (98-107); Cholesterol 154 mg/dL (200); Creatinine, Serum 0.87 mg/dL (0.70-1.30); EST Glomerular Filtration Rate 91 mL/min (>60); Est Glom Filt Rate - Afr Amer 110 mL/min (>60); Globulin 3.4 g/dL (2.2-4.2); Glucose 180 mg/dL (74-106); High Density Lipoprotein 44 mg/dL; Potassium 4.2 mmol/L (3.5-5.1); Protein, Total 7.5 g/dL (6.4-8.2); Sodium Level 138 mmol/L (136-145); Triglycerides 94 mg/dL; Very Low Density Lipoprotein 19 mg/dL (5-40)
[2024-09-15 10:50] LABS: Hemoglobin A1c 8.7 % (3.8-5.6)
== END | disposition home or self-care (01) ==
LOC: MFPLAB 08:32
PROVIDERS: PCP Family Medicine; Visit Provider Family Medicine
DX: E11.9 Type 2 diabetes mellitus without complications (principal)
CPT/HCPCS: 36415; 80053; 80061; 83036

== ENCOUNTER → 2024-12-22 | Outpatient (CLI) | payer OTHER, SELFPAY ==
[2024-12-22 10:47] LABS: Microalbumin:Creatinine Ratio 414.4 mg/g CRE (<30 mg/g CRE)
[2024-12-22 10:57] LABS: ALB/GLOB Ratio 1.1 RATIO (0.9-2.4); AST(SGOT) 18 U/L (15-37); Alanine Aminotransfer ALT/SGPT 41 U/L (16-61); Alkaline Phosphatase 29 U/L (45-117); Anion Gap 7 (5-15); BUN 13 mg/dL (7-18); BUN/Creat Ratio 13.8 RATIO (10-20); Calcium,Total 9.6 mg/dL (8.5-10.1); Chloride 106 mmol/L (98-107); Cholesterol 155 mg/dL (200); Creatinine, Serum 0.94 mg/dL (0.70-1.30); EST Glomerular Filtration Rate 84 mL/min (>60); Est Glom Filt Rate - Afr Amer 101 mL/min (>60); Globulin 3.5 g/dL (2.2-4.2); Glucose 172 mg/dL (74-106); High Density Lipoprotein 49 mg/dL; Protein, Total 7.5 g/dL (6.4-8.2); Sodium Level 139 mmol/L (136-145); Triglycerides 102 mg/dL; Very Low Density Lipoprotein 20 mg/dL (5-40)
== END | disposition home or self-care (01) ==
LOC: MFPLAB 08:35
PROVIDERS: PCP Family Medicine; Referring Provider Family Medicine; Visit Provider Family Medicine
DX: E11.9 Type 2 diabetes mellitus without complications (principal)
CPT/HCPCS: 36415; 80053; 80061; 82043; 82570

== ENCOUNTER → 2025-06-22 | Outpatient (CLI) | payer OTHER, SELFPAY ==
[2025-06-22 10:44] LABS: AST(SGOT) 20 U/L (<=37); Alanine Aminotransfer ALT/SGPT 28 U/L (<=46); Albumin, Serum 4.1 g/dL (3.4-4.8); Alkaline Phosphatase 32 U/L (40-129); Anion Gap 12 (5-15); BUN 14 mg/dL (4-19); BUN/Creat Ratio 15.8 RATIO (10-20); Calcium,Total 9.3 mg/dL (7.6-11.0); Carbon Dioxide 22.8 mmol/L (21.0-32.0); Chloride 104 mmol/L (98-108); Cholesterol 135 mg/dL (<=200); Globulin 2.5 g/dL (2.2-4.2); Glucose 173 mg/dL (70-99); Low Density Lipoprotein Calc. 69 mg/dL; Potassium 4.4 mmol/L (3.3-5.1); Triglycerides 115 mg/dL; Very Low Density Lipoprotein 23 mg/dL (5-40); cholesterol:hdl ratio screen 3.15
== END | disposition home or self-care (01) ==
LOC: MFPLAB 08:31
PROVIDERS: PCP Family Medicine; Referring Provider Family Medicine; Visit Provider Family Medicine
DX: E11.9 Type 2 diabetes mellitus without complications (principal)
CPT/HCPCS: 36415; 80053; 80061